=== PATIENT | male | born 1980 | race Caucasian/White ===

== ENCOUNTER 2020-09-18 19:45 | Emergency (ER) | payer SELFPAY ==
[~2020-09-18] VITALS: Ht 180.3 cm; Wt 99.8 kg
[2020-09-18 20:03] VITALS: Ht 180.3 cm; Wt 99.8 kg
[2020-09-18] MEDS ORDERED: ACETAMINOPHEN-H1 TA1 PO (22:34)
[2020-09-18] MEDS ORDERED: IBU600 M2 PO (22:34)
[2020-09-18] MEDS ORDERED: ANTIBIOTIC O500 U/GM TOP (22:34)
[2020-09-18 23:00] VITALS: BP 116/87
== END 2020-09-18 23:00 | disposition home or self-care (01) ==
LOC: ED 19:45
DX: S92.532A Displaced fracture of distal phalanx of left lesser toe(s), initial encounter for closed fracture (principal); S05.11XA Contusion of eyeball and orbital tissues, right eye, initial encounter; S20.212A Contusion of left front wall of thorax, initial encounter; I10 Essential (primary) hypertension; Z88.0 Allergy status to penicillin; Y04.8XXA Assault by other bodily force, initial encounter; Y93.89 Activity, other specified; Y92.89 Other specified places as the place of occurrence of the external cause; Y99.8 Other external cause status
CPT/HCPCS: Q0162